=== PATIENT | female | born 1950 | race Caucasian/White ===

== ENCOUNTER → 2019-09-16 | Outpatient (CLI) | payer MEDICARE, OTHER ==
[~2019-09-16] MED LIST: NORMAL SALINE IV ONE; SINCALIDE IV ONE
--- NOTE | 2019-09-16 10:47 | RAD ---
EXAM: HEPATOBILIARY SCINTIGRAPHY WITH GALLBLADDER EJECTION FRACTION CALCULATION. HISTORY: Epigastric and right upper quadrant pain. Nausea and vomiting. TECHNIQUE: 5.5 mCi technetium-99m Choletec were administered intravenously and scintigraphic images of the abdomen obtained. After filling of the gallbladder, 1.23 mcg of sincalide were infused and the gallbladder ejection fraction calculated. FINDINGS: There is prompt hepatic clearance of tracer from the blood pool. There is homogeneous distribution throughout the liver. There is normal filling of the gallbladder and clearance into the biliary tree and small bowel. The gallbladder ejection fraction is 81% (normal >35%). IMPRESSION: 1. Normal gallbladder ejection fraction. Electronically signed by: Ron Pedersen MD (09/16/2019 10:44 AM) [id number]
== END | disposition home or self-care (01) ==
LOC: NM 08:10
PROVIDERS: ATTEND Physician Assistant
DX: K81.9 Cholecystitis, unspecified (principal)
CPT/HCPCS: 78227; A9537; J2805